=== PATIENT | female | born 1980 | race Asian ===

== ENCOUNTER → 2021-08-12 17:47 | Outpatient (CLI) | payer OTHER, SELFPAY ==
--- NOTE | 2021-08-12 18:15 | MRI_ITS ---
STUDY: MRI RIGHT ELBOW REASON FOR EXAM: Female, 41 years old. RIGHT elbow lateral epicondylitis TECHNIQUE: Standardized fat and water weighted pulse sequences were obtained in all 3 orthogonal planes. COMPARISON: None. FINDINGS: Normal radio-capitellum articulation. A high-grade partial tear/intrasubstance split tear is present in the central and posterior aspect of the common extensor tendon complex. The posterior aspect of the radial collateral ligament is also partially torn. The anterior aspect of the radial collateral ligament is intact but diffusely thinned. A small elbow joint effusion is present. No bone marrow edema or osteochondral defect or fracture is seen. Normal ulnotrochlear articulation. Normal ulnar collateral ligamentous complex. Normal common flexor tendon. The cubital tunnel is normal, with a normal ulnar nerve. Normal biceps tendon and distal insertion. Normal lacertus fibrosis. Normal brachialis musculotendinous insertion. Normal triceps tendon and teno-osseous insertion. Normal olecranon process. The visualized distal humerus, proximal radius, and ulna are normal. The visualized muscles of the distal arm and proximal forearm are normal. The soft tissue structures are unremarkable. MRI/Upper Ext Joint Only(Routine) IMPRESSION: 1. A high-grade partial tear/intrasubstance split tear is present in the central and posterior aspect of the common extensor tendon complex. 2. The posterior aspect of the radial collateral ligament is also partially torn. The anterior aspect of the radial collateral ligament is intact but diffusely thinned. 3. A small elbow joint effusion is present. No bone marrow edema or osteochondral defect or fracture is seen. Electronically Signed: Shaka Michelle MD at 23:17 EST , Service support ,
== END ==
PROVIDERS: Visit Provider Family Medicine
DX: M77.11 Lateral epicondylitis, right elbow (principal)
CPT/HCPCS: 73221

== ENCOUNTER → 2022-09-22 | Outpatient (CLI) | payer BC, SELFPAY ==
--- NOTE | 2022-09-22 07:56 | CT_ITS ---
STUDY: CT ABDOMEN AND PELVIS WITH CONTRAST REASON FOR EXAM: Female, 42 years old. Chronic right lower quadrant pain. Pelvic pressure. Dysuria. RADIATION DOSAGE (If Supplied By Facility): CTDIvol = ( 17.04 ) mGy, DLP = ( 351.65 ) mGycm TECHNIQUE: Transaxial images were obtained from the dome of the diaphragm to the symphysis pubis with oral contrast. Oral and amp;amp; IV Readi-CAT and amp;amp; 100mL Isovue-370 was administered. Sagittal and coronal images were reconstructed. Individualized dose optimization techniques were used for this CT. COMPARISON: None. FINDINGS: The visualized lung bases are unremarkable. The visualized portions of the heart are within normal limits. Normal liver. Normal gallbladder and extrahepatic biliary system. Normal spleen. Normal pancreas. Normal bilateral adrenal glands. Normal right kidney. Normal left kidney. Normal visualized stomach. Normal small intestine. Normal colon. The appendix is visualized and appears normal. Normal abdominal aorta. Normal inferior vena cava. Normal retroperitoneum. Normal urinary bladder. Heterogeneously enlarged uterus suggestive of a fibroid uterus. Normal abdominal wall. Normal osseous structures. CT/Abdomen/Pelvis WITH Contrast IMPRESSION: Enlarged fibroid uterus. Electronically Signed: Ariel Yee MD at 8:25 EST ,
== END | disposition home or self-care (01) ==
LOC: CT 07:55
PROVIDERS: Visit Provider Family Medicine
DX: R10.31 Right lower quadrant pain (principal)
CPT/HCPCS: 74177; Q9967

== ENCOUNTER 2023-06-16 13:26 | Emergency (ER) | payer BC, SELFPAY ==
[2023-06-16 13:27] VITALS: TEMP 36.1; BMI 21.7
[2023-06-16 13:31] VITALS: BP 115/84; PULSE 84; RESP 19; O2SAT 100
--- NOTE | 2023-06-16 13:53 | CT_ITS ---
HISTORY: headache, vertigo. TECHNIQUE: Multiple axial images were obtained of the head without intravenous contrast. A radiation dose optimization technique was used for this scan. 226 images. COMPARISON: None. FINDINGS: BRAIN PARENCHYMA: No significant attenuation abnormality. No acute intra-axial hemorrhage. CSF SPACES: Cerebral ventricles, cortical sulci, and other extra-axial CSF spaces within normal limits in size for age. No midline shift or other significant mass effect. No acute extra-axial hemorrhage. OTHER: Intact calvarium. No significant air fluid levels in the paranasal sinuses or mastoid air cells. Unremarkable orbits. CT/Brain/Head without Contrast IMPRESSION: No acute intracranial process identified. Electronically Signed: Sivan Abdalla MD at 14:40 EDT ,
[2023-06-16] MEDS: Ondansetron ODT 4 MG Tablet 8 MG PO (13:59)
[2023-06-16] MEDS: Meclizine HCl 25 MG Tablet PO (13:59)
--- NOTE | 2023-06-16 13:59 | EDS_ITS ---
HPI History of Present Illness Chief Complaint: Dizziness Informant: patient and spouse/S.O. Narrative Narrative: 43-year-old healthy female presents with intermittent severe dizziness that feels like spinning making her nausea with dry heaving, and when she was feeling awful she felt like she was a little short of breath although she does not feel like that now that her dizziness is better, she admits to having a mild headache with this off-and-on, no syncope, no injuries when she collapsed to her buttocks to the ground, this occurred today while she was at work but she had a worse episode today when she woke up this morning, it started upon getting out of bed. She confirms that moving her head makes everything worse and recur. She has had all of this before but symptoms were never as significant as they were today. The symptoms would go away when she rests. At home sometimes in the past she would get it with lying down in bed certain ways. She states she also felt some type of weird popping in her right ear today. She denies any recent URIs, injuries to her head or ears, earache, otorrhea, or peripheral neurologic symptoms. [facility] Medical History (Updated 06/16/23 @ 14:[address] Adrián Heck MD) History of right tennis elbow Medical History no medical history no medical history Home Medications aspirin 81 mg capsule 81 mg PO DAILY 06/16/23 [History Last Taken Unknown] meclizine 25 mg tablet 25 mg PO Q8H PRN PRN Dizziness #30 tabs 06/16/23 [Rx Last Taken Unknown] ondansetron 4 mg disintegrating tablet 8 mg (2 x 4 mg) PO Q8H PRN PRN Nausea #20 tabs 06/16/23 [Rx Last Taken Unknown] Allergy/AdvReac Type Severity Reaction Status Date / Time No Known Allergies Allergy Verified 06/16/23 13:29 Social History Smoking Status: Never smoker ROS ROS ED Constitutional Constitutional ED: Denies chills or fever(s) Eyes Eyes: Denies blurry vision, change in vision or diplopia ENT ENT ED: Reports as per HPI and vertigo; Denies ear pain, rhinorrhea or sore throat Cardiovascular Cardiovascular: Denies chest pain or palpitations Respiratory/Chest Respiratory/Chest: Reports as per HPI and dyspnea; Denies cough Gastrointestinal Gastrointestinal: Reports nausea and vomiting; Denies abdominal pain or diarrhea Genitourinary Genitourinary ED: Denies dysuria or hematuria Musculoskeletal Musculoskeletal: Denies back pain or neck pain Integumentary Denies abscess or rash Neurologic Neurologic: Reports headache(s); Denies paresthesias or weakness Psychiatric Psychiatric: Denies suicidal ideation or suicidal thoughts EXAM Physical Exam Const Vital Signs: 06/16/23 13:27 06/16/23 13:30 06/16/23 13:31 Temperature 96.9 F L Temperature Source Temporal Pulse Rate 84 Respiratory Rate 19 H Respiratory Effort Normal Blood Pressure 115/84 H Blood Pressure Mean 94 Pulse Ox 100 Oxygen Delivery Method Room Air Positive well nourished and well developed General Appearance ED: well developed and NAD HEENT Reports TM's clear and moist mucous membranes normocephalic and atraumatic Tympanic Membrane ED: Yes TM's clear Eyes PERRL and EOMs intact bilaterally Neck full ROM, no lymphadenopathy and supple Chest Wall inspection of chest normal and palpation of chest normal Resp normal respiratory effort and clear to auscultation bilaterally Cardio regular rate, regular rhythm and no murmurs Rate: Negative for tachycardic GI non-tender and non-distended Auscultation: normoactive bowel sounds Palpation: soft Back/Spine no CVA tenderness General Back: other FROM Extremity normal to inspection General Extremety ED: Negative for edema, pulses abnormal or tenderness General Extremity: Negative for edema or pulses abnormal Neuro oriented x3, CN's II-XII intact bilaterally and no sensory deficits noted Neuro Narrative: Normal [id number] and [id number] bilaterally. Abnormal jolt test while mildly vertiginous. Sensorium / Orientation: awake and alert Motor Exam: strength 5/5 throughout Psych Mood & Affect: anxious Skin no rashes or lesions noted and no wounds MDM MDM MDM Narrative Medical decision making narrative: History and exam including the abnormal jolt test all consistent with peripheral vertigo. Given that she has been having headaches with it, I obtained a CT of the head. I reviewed the images and the report from the radiologist which I agree with, negative for anything acute. In the meantime she was given meclizine and Zofran and reevaluated. She is feeling much better, ambulatory to and from the bathroom without any difficulty. Reassured, will refer to ENT since has been having symptoms for some time, and prescribe her meclizine and Zofran to use as needed in the meantime. She given a work note. Radiography Diagnostic Testing: Clinical Impression(s) from Imaging Studies Brain CT 06/16/23 13:53 IMPRESSION: No acute intracranial process identified. Electronically Signed: Sivan Abdalla MD at 14:40 EDT , Discharge Plan Triage Chief Complaint: Dizziness ED Provider: Adrián Heck Dx/Rx/DC Orders Clinical Impression: Peripheral vertigo Instructions: ED Vertigo, Unspecified Prescriptions: New meclizine [meclizine] 25 mg tablet 25 mg PO Q8H PRN PRN (Reason: Dizziness) Qty: 30 0RF ondansetron [ondansetron] 4 mg tablet,disintegrating 8 mg PO Q8H PRN PRN (Reason: Nausea) Qty: 20 0RF No Action aspirin 81 mg capsule 81 mg PO DAILY Primary Care Provider: Care Physician,No Primary Referrals: Sal Anderson MD [Med Staff - Active Staff] - (Call for appointment to be seen by first available ENT provider) Disposition Disposition: Home, Self Care
[2023-06-16 15:02] VITALS: BP 105/78; PULSE 82; RESP 18; O2SAT 100
== END 2023-06-16 15:19 | disposition home or self-care (01) ==
PROVIDERS: Emergency Provider Emergency Medicine; Visit Provider Emergency Medicine
DX: H81.399 Other peripheral vertigo, unspecified ear (principal); Z79.82 Long term (current) use of aspirin; R06.00 Dyspnea, unspecified
CPT/HCPCS: 70450; 99285

== ENCOUNTER 2025-06-19 16:29 | Emergency (ER) | payer BC, SELFPAY ==
[2025-06-19 16:30] VITALS: BP 108/84; PULSE 68; RESP 14; TEMP 36.2; O2SAT 100
[2025-06-19 17:29] VITALS: BP 109/74; PULSE 63; RESP 18; O2SAT 100
--- OUTSIDE RECORDS SUMMARY | 2025-06-19 17:35 | XMS RPT_ITS | CCD ---
Author Organization [facility] Partnership [facility] Care Team Providers Care Acetylene Torch Solderer Name Role Phone Unavailable Primary Care Provider ZEFERINO Corrales Attending Unavail BAILEY Cavazos Attending Unavailable Adrián Heck Attending Unavailable Care Physician, No Primary Primary Care Unava ilable Medications Current Medications Medication Drug Class(es) Dates Sig (Normalized) Sig (Original) aspirin 81 mg oral tablet (1 source) Platelet Aggregation Inhibitor, Nonsteroidal Anti-inflammatory Drug Start: 06-16-2023 take 81 mg by mouth once daily Aspirin Active 81 MG PO DAILY June 16, 2023 12:00am meclizine hydrochloride 25 mg oral tablet (1 source) Antiemetic Start: 06-16-2023 take 25 mg by mouth every eight hours as needed Meclizine Active 25 MG PO EVERY 8 HOURS NEEDED June 16, 2023 2:59pm ondansetron 4 mg disintegrating oral tablet (1 source) Serotonin-3 Receptor Antagonist Start: 06-16-2023 take 8 mg by mouth every eight hours as needed Ondansetron Active 8 MG PO EVERY 8 HOURS NEEDED June 16, 2023 12:00am Problems Active Problems Problem Classification Problem Date Documented Date Episodic/Chronic Abdominal pain (3 sources) Pain in female pelvis; Translations: [Pelvic and perineal pain] Onset: 10-16-2022 Episodic Benign neoplasm of uterus (3 sources) Uterine leiomyoma; Translations: [Leiomyoma of uterus, unspecified] Onset: 10-16-2022 Episodic Immunizations and screening for infectious disease (1 source) Patient encounter status; Translations: [Encounter for screening for human papillomavirus (HPV)] Episodic Other female genital disorders (2 sources) Abnormal uterine bleeding; Translations: [Abnormal uterine and vaginal bleeding, unspecified] Chronic Other female genital disorders (1 source) Abnormal uterine and vaginal bleeding, unspecified; Translations: [Abnormal uterine bleeding (AUB)] Onset: 10-16-2022 Chronic Other screening for suspected conditions (not mental disorders or infectious disease) (1 source) Cancer cervix screening status; Translations: [Encounter for screening for malignant neoplasm of cervix] Episodic Past or Other Problems Problem Classification Problem Date Documented Da te Episodic/Chronic Conditions associated with dizziness or vertigo (2 sources) Peripheral vertigo; Translations: [Other peripheral vertigo, unspecified ear] Onset: 06-22-2023 06-16-2023 Episodic Results Test Name Value Interpretation Reference Range Facility [facility] 10-17-2022 CNPN Telephone (OBGYWM) ERNESTO FUENTES ([id number]) 1980 F Date Time Provider Department 10/17/22 ZEFERINO MCCORMACK During your visit today, we recorded the following information about you: Staci Kong RN 10/17/2022 11:36 AM Signed ----- Message from Zeferino Johnson MD sent at 10/17/2022 11:05 AM EST ----- Notify the patient that her uterus shows very small fibroids largest measures 3.8 cm which is slightly smaller than a golf ball. Her uterus is just slightly enlarged. The myometrium is suspicious for adenomyosis which can cause pelvic pain and heavy menses. First-line therapy for this would be hormonal therapy either pills, Mirena IUD, patch, ring etc. If she would like to discuss options in detail please arrange virutal or in office visit. Staci Kong RN 10/17/2022 11:41 AM Signed Called patient and reviewed results and recommendations below. Patient asked that RN speak with her and well and go over results as there are some words that she doesn't fully understand. Spoke with as he also reviewed with patient. Offered in office appointment multiple times to go over treatment options in detail. declines states they will think about it and let us know. Staci Garcia MD 10/17/2022 12:23 PM Signed noted Allergies As of Date: 10/17/2022 (No Known Allergies) Date Reviewed: 10/09/2022 Reviewed by: Dora Urbano Ma - Fully Assessed Reason for Visit: Results [95] Problem List As Of Date: 10/17/2022 (None) Encounter Status:Closed by STACI KONG RN on 10/17/22 [facility] CNOVon 10-16-2022 CNOV Office Visit (OBGYWM ) ERNESTO FUENTES ([id number]) 1980 F Date Time Provider Department 10/16/22 4:45 PM BAILEY ALICIA During your visit today, we recorded the following information about you: Referring Provider: SELF [200] Allergies As of Date: 10/16/2022 (No Known Allergies) Date Reviewed: 10/09/2022 Reviewed by: Dora Urbano Ma - Fully Assessed Reason for Visit: Pelvic Pain [282] Primary Visit Diagnosis:Pelvic pain in female [R10.2] Problem List As Of Date: 10/16/2022 (None) Encounter Status:Closed by BAILEY ALICIA on 10/16/22 [facility] PELVIC US WHIon 10-16-2022 [facility] CNOVon 10-09-2022 CNOV Office Visit (OBGYWM ) ERNESTO FUENTES ([id number]) 1980 F Date Time Provider Department 10/09/22 10:20 AM ZEFERINO MCCORMACK During your visit today, we recorded the following information about you: Blood pressure Weight Height Last Period 110/60 48.1 kg 1.575 m 09/26/22 Zeferino Garcia MD 10/09/2022 11:35 AM Signed Curb Builder offered: Patient declines. Ernesto Fuentes is a 42 year old female who presents for problem visit of RLQ burning pain that radiates into the right buttock. It comes and goes randomly, and will persist until she takes medication. Aspirin normally provides relief. Pain is worse with periods. No aggravating factors. Went to see her PCP and they ordered CT. patient reports she currently uses vasectomy for control. States that previously she took control pills and she never had pain periods were light discomfort with them. She denies any changes with her bowel habits. She denies any nausea or vomiting associated pain. Rates it currently a 2 -5 out of 10 but can get a 10 out of 10. Patient offers no other concerns at this time. 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 No pertinent past medical history. PAST SURGICAL HISTORY Procedure Laterality Date ELBOW RIGHT 05/01/2022 No family history on file. Social History Tobacco Use Smoking status: Never Smokeless tobacco: Never Vaping Use Vaping Use: Never used Substance Use Topics Alcohol use: Never Drug use: Never No current outpatient medications on file. No current facility-administered medications for this visit. Allergies As of Date: 10/09/2022 (No Known Allergies) Fully Assessed 10/09/2022 REVIEW OF SYSTEMS Abdomen: +RLQ abdominal pain., nausea, vomiting, diarrhea, or constipation. No bloating, early satiety, indigestion, or increased flatulence. No abdominal pain, nausea, vomiting, diarrhea, or constipation. Bladder: No dysuria, gross hematuria, urinary frequency, urinary urgency, or incontinence. Breast: No breast lumps, nipple d/c, overlying skin changes, redness or skin retraction. Expanded ROS: REFRIGERATING ENGINEER: Negative for abnormal vaginal bleeding, abnormal vaginal discharge Allergies and current medication updated:Yes EXAM: BP 110/60 Ht 5' 2 (1.58m) Wt 106 lb (48.1kg) LMP 09/26/2022 BMI 19.38 kg/(m2). GENERAL: pleasant, female in no apparent distress HEENT: Normocephalic, atraumatic, mucus membranes moist, and no lesions NECK: full range of motion DERMATOLOGY: without lesions ABDOMEN: soft, non-tender, and no masses PELVIC: external genitalia normal, normal Bartholin's glands, urethra, [place]'s glands, no vulvar lesions, no cervical lesions, good vaginal support, physiologic discharge present, normal appearing perineal body and perianal region BIMANUAL: uterus top normal size, no adnexal masses, Mild tenderness, and ?? Fullness posterior to uterus NEURO: alert and oriented x3,exam grossly non-focal EXTREMITIES: normal ASSESSMENT AND PLAN: Encounter Diagnosis ICD-10-CM 1. Pelvic pain in female R10.2 PELVIC US WHI 2. Abnormal uterine bleeding (AUB) N93.9 PELVIC US WHI 3. Uterine leiomyoma, unspecified location D25.9 PELVIC US WHI 4. Screening for cervical cancer Z12.4 PAP FLUID CERVICAL SCREENING 5. Special screening examination for human papillomavirus (HPV) Z11.51 PAP FLUID CERVICAL SCREENING 6 CT results from [facility] reviewed that was done 09/22/2022 shows a heterogeneously enlarged uterus suggestive of a fibroid uterus no other suspicious findings noted. 7. Pelvic ultrasound reviewed with the patient. Discussed hormonal options and pamphlets were given. Once the results are back I will call the patient and discuss further. NSAIDs were reviewed with the patient. We discussed typical benign nature of fibroids. Medical Decision Making: Problems: Moderate: New problem with uncertain prognosis Data: Unique test result(s) reviewed: 1 Unique test(s) ordered: 3+ Medical Decision Making Level: 4 - Moderate Zeferino Garcia MD Allergies As of Date: 10/09/2022 (No Known Allergies) Date Reviewed: 10/09/2022 Reviewed by: Dora Urbano Ma - Fully Assessed Reason for Visit: Vaginal Problem [117] Primary Visit Diagnosis:Pelvic pain in female [R10.2] Other Visit Diagnoses:Abnormal uterine bleeding (AUB) [N93.9] Uterine leiomyoma, unspecified location [D25.9] Screening for cervical cancer [Z12.4] Special screening examination for human papillomavirus (HPV) [Z11.51] Order(s):PELVIC US WHI [[id number]] Order #: [id number]: 1 FUTURE PAP FLUID CERVICAL SCREENING (more content not included)... Normal [facility] HPV W/GENOTYPE THIN PREPon 0 10-09-2022 HPV 16 Ag Ql (Unsp spec) Negative Normal Negative for HPV DNA high risk type 16 by PCR [facility] Comment on above: Order Comment: Speci men Type: FLUID SPECIMEN Ordering Facility: [facility] Address: [address] [place] [address] Performed By: #### H PVHRT #### [facility] CLIA [id number] [address] [place] [address] [place] HPV 18 Ag Ql (Unsp spec) Negative Normal Negative for HPV DNA high risk type 18 by PCR [facility] Comment on above: Order Comment: Speci men Type: FLUID SPECIMEN Ordering Facility: [facility] Address: [address] [place] [address] Performed By: #### H PVHRT #### [facility] CLIA [id number] [address] [place] [address] [place] HPV 31+33+35+39+45+51+52 +56+58+59+66+68 DNA FACUNDO+probe Ql (Cvx) Negative for HPV DNA high risk types: 31,33,35,39,45,51,52,5 6,58,59,66,68 by PCR. Normal Negative for HPV DNA high risk types: 31,33,35,39,45 ,51,52,56,58,5 9,66,68 by PCR. [facility] Comment on above: Order Comment: Speci men Type: FLUID SPECIMEN Ordering Facility: [facility] Address: [address] [place] [address] Performed By: #### H PVHRT #### [facility] CLIA [id number] [address] [place] [address] [place] PAP FLUID CERVICAL SCREENING on 10-09-2022 CASE REPORT Normal [facility] Comment on above: Order Comment: Speci men Type: FLUID SPECIMEN Ordering Facility: [facility] Address: [address] [place], [place] [id number] Result Comment: Gyne cologic Cytology Report Case: [id number] Authorizing Provider: Zeferino Johnson, Collected: 10/09/2022 11:22 AM Ordering Location: OB/Gynecology Received: 10/09/2022 01:29 PM First Screen: Grace De La Paz, CT, ASCP Specimen: Pap, Sales Marketing, Screening, CERVICAL SCREENING FLUID Performed By: #### L [id number] #### [facility] CLIA [id number] [address] [place] [address] [place] CLINICAL HISTORY ROUTINE EXAM Normal [facility] Comment on above: Order Comment: Speci men Type: FLUID SPECIMEN Ordering Facility: [facility] Address: [address] [place] [address] Performed By: #### L [id number] #### [facility] CLIA [id number] [address] [place] [address] [place] CYTOLOGY INTERPRETATION PAP Normal [facility] Comment on above: Order Comment: Speci men Type: FLUID SPECIMEN Ordering Facility: [facility] Address: [address] [id number] Result Comment: Nega tive for Intraepithelial lesion or malignancy. Performed By: #### L [id number] #### [facility] CLIA [id number] [address] [place] [address] [place] FINAL DIAGNOSIS Normal [facility] Comment on above: Order Comment: Speci men Type: FLUID SPECIMEN Ordering Facility: [facility] Address: [address] Result Comment: A - CERVICAL SCREENING FLUID Satisfactory for interpretation Negative for Intraepithelial lesion or malignancy. Performed By: #### L [id number] #### [facility] CLIA [id number] [address] [place] FINAL PERFORMING LAB Normal [facility] Comment on above: Order Comment: Speci men Type: FLUID SPECIMEN Ordering Facility: [facility] Address: [address] Result Comment: Tech nical component, audit clerk screening performed at [facility], [address] [facility] [address] CLIA# [id number] Diagnostic interpretation performed at [facility], [address] [facility] [address] CLIA# [id number] Locksmith: Sher Gunn M.D. Performed By: #### L [id number] #### [facility] CLIA [id number] [address] [place] HPV REQUESTED? Yes, automatic HPV patients over 30 Normal [facility] Comment on above: Order Comment: Speci men Type: FLUID SPECIMEN Ordering Facility: [facility] Address: [address] [place] [place] [address] Performed By: #### L [id number] #### [facility] CLIA [id number] [address] [place] [id number] [place] LMP 09/26/2022 Normal [facility] Comment on above: Order Comment: Speci men Type: FLUID SPECIMEN Ordering Facility: [facility] Address: [address] Performed By: #### L [id number] #### [facility] CLIA [id number] [address] [place] [address] [place] PAP DISCLAIMER COMMENT The Pap Smear is a screening test for cervical cancer. False negative results occur with all screening tests, emphasizing the need for rescreening at recommended intervals, and clinical correlation. Normal [facility] Comment on above: Order Comment: Speci men Type: FLUID SPECIMEN Ordering Facility: [facility] Address: [address] [place] [address] Performed By: #### L [id number] #### [facility] CLIA [id number] [address] [place] [address] [place] PAP METEOROLOGICAL EQUIPMENT REPAIRER COMMENT This specimen has be en analyzed by the ThinPrep Imaging System, an automated imaging and review system, which assists the laboratory in evaluating cells on ThinPrep Pap tests. Following automated imaging, selected headley from every slide are reviewed by a audit clerk. Normal [facility] Comment on above: Order Comment: Speci men Type: FLUID SPECIMEN Ordering Facility: [facility] Address: [address] [place] [address] Performed By: #### L [id number] #### [facility] CLIA [id number] [address] [place] [address] Vital Signs Date Time Vital Sign Value Performing Clinician Dar baig 06-16-2023 15:02-0400 Diastolic blood pressure 78 mm[Hg] [facility] 06-16-2023 15:02-0400 Heart rate 82 /min [facility] 06-16-2023 15:02-0400 Respiratory rate 18 /min [facility] 06-16-2023 15:02-0400 SaO2% (BldA) [Mass fraction] 100 % [facility] 06-16-2023 15:02-0400 Systolic blood pressure 105 mm[Hg] [facility] 06-16-2023 13:27-0400 Body height 152.4 cm [facility] 06-16-2023 13:27-0400 Body mass index (BMI) [Ratio] 21.7 kg/m2 [facility] 06-16-2023 13:27-0400 Body temperature 96.9 [degF] [facility] 06-16-2023 13:270400 Body weight 50.6 kg [facility] 10-09-2022 10:230500 Body height 157.5 cm Zeferino Johnson MD Work Phone: [facility] 10-09-2022 10:230500 Body weight 48.08 kg Zeferino Johnson MD Work Phone: [facility] 10-09-2022 10:23-0500 Diastolic blood pressure 60 mm[Hg] Zeferino Johnson MD Work Phone: [facility] 10-09-2022 10:23-0500 Systolic blood pressure 110 mm[Hg] Zefreino Johnson MD Work Phone: [facility] Encounters Encounter Date Encounter Type Care Provider Facility Start: 06-16-2023 End: 06-16-2023 Emergency department patient visit [facility] Work Phone: Start: 10-17-2022 Telephone encounter Zeferino Johnson MD Work Phone: OB/Gynecology Comment on above: Results Start: 10-16-2022 End: 10-16-2022 ambulatory BAILEY ALICIA Facility:[facility] Start: 10-16-2022 End: 10-16-2022 Patient encounter procedure Client Support Professional [facility] Work Phone: OB/Gynecology Comment on above: Pelvic pain in femal e; Abnormal uterine bleeding (AUB); Uterine leiomyoma, unspecified location Start: 10-09-2022 End: 10-09-2022 ambulatory ZEFERINO JOHNSON Facility:[facility] Start: 10-09-2022 End: 10-09-2022 Patient encounter procedure Zeferino Johnson MD Work Phone: OB/Gynecology Comment on above: Pelvic pain in femal e (Primary Dx); Abnormal uterine bleeding (AUB); Uterine leiomyoma, unspecified location; Screening for cervical cancer; Special screening examination for human papillomavirus (HPV) Start: 09-22-2022 End: 09-22-2022 ambulatory [facility] Work Phone: Start: 09-22-2022 End: 09-22-2022 Patient encounter procedure [facility]-Cat Scan, [facility] Procedures Date Procedure Procedure Detail Performing Clinician Start: 06-16-2023 CT of head without contrast Start: 10-16-2022 Us pelvic nonobstetr ic real-time image complete Zeferino Johnson MD Work Phone: Start: 09-22-2022 Computed tomography of abdomen and pelvis with contrast Plan of Treatment Date Care Activity Detail Author Start: 10-09-2027 HPV TESTING HPV TESTING [facility] Start: 10-09-2027 PAP TESTING PAP TESTING [facility] Start: 10-09-2022 End: 10-09-2023 PELVIC US WHI PELVIC US WHI Anc Imaging Routine Pelvic pain in female Abnormal uterine bleeding (AUB) Uterine leiomyoma, unspecified location Expected: 10/09/2022, Expires: 10/09/2023 [facility] Work Phone: Comment on above: Expected: 10/09/2022 , Expires: 10/09/2023 Start: 09-17-2022 DEPRESSION ASSESSMENT DEPRESSION ASS ESSMENT [facility] Start: 05-18-2022 Influenza vaccination INFLUENZA (#1) [facility] Start: 2018 Mammography MAMMOGRAM [facility] Start: 01-29-2008 HPV TESTING HPV TESTING [facility] Start: 1999 PAP TESTING PAP TESTING [facility] Start: 1997 Urine microalbumin profile DTAP,TDAP,TD (1 - Tdap) [facility] Start: 01-29-1996 HEPATITIS C SCREENING HEPATITIS C SC REENING [facility] Start: 01-29-1996 HIV SCREENING HIV SCREENING [facility] Start: 1978 COVID-19 VACCINE (#1) COVID-19 VACCI NE (#1) [facility] Start: 1978 HEPATITIS B (1 of 3 - 3-dose series) HEPATITIS B (1 of 3 - 3-dose series) [facility] PAP FLUID CERVICAL SCREENING PAP FLUID CERVICAL SCREENING Lab Routine Screening for cervical cancer Special screening examination for human papillomavirus (HPV) 10/09/2022 11:22 AM EST [facility] Work Phone: Patient Education ED Vertigo, Unspecified [facility] Work Phone: Patient referral [facility] Work Phone: [facility] c Payers Date Payer Category Payer Self-pay [id number] 2021 Unknown [id number] 2021 Unknown [employer] PPO [id number] 2021-Present [phone] [address] [place] [address] PPO [id number] Unknown [facility] 123 [id number] Unknown [id number] Social History Date Type Detail Facility [facility] Work Phone: Start: 1980 Sex Assigned At Female [facility] Start: 10-09-2022 [facility] Never [facility] tobacco [facility] Start: 10-09-2022 Tobacco use and exposure Smokeless tobacco non-user [facility] Start: 10-09-2022 Alcohol intake Lifetime non-d viet (finding) [facility] Start: 06-16-2023 [facility] ever smoked [facility] Discharge summary 06-16-2023 Note Date & Type Note Facility 06-16-2023 Discharge summary Note Date/Time June 16, 2023 2:02pm [facility] Medical Records Department [address] [place] [address] Emergency Department Summary 06/16/23 MR#: [id number] Acct: [id number] Name: JUMANA FUENTES Rep #:[id number] : 1980 43 From: Adrián Heck MD PCP: Care Physician,No Primary Status :REG ER Location: ED HPI History of Present Illness Chief Complaint: Dizziness Informant: patient and spouse/S.O. Narrative Narrative: 43-year-old healthy female presents with intermittent severe dizziness that feels like spinning making her nausea with dry heaving, and when she was feelingawful she felt like she was a little short of breath although she does not feel like that now that her dizziness is better, she admits to having a mild headachewith this off-and-on, no syncope, no injuries when she collapsed to her buttocksto the ground, this occurred today while she was at work but she had a worse episode today when she woke up this morning, it started upon getting out of bed. She confirms that moving her head makes everything worse and recur. She has had all of this before but symptoms were never as significant as they were today. The symptoms would go away when she rests. At home sometimes in the past she would get it with lying down in bed certain ways. She states she also felt some type of weird popping in her right ear today. She denies any recent URIs, injuries to her head or ears, earache, otorrhea, or peripheral neurologic symptoms. [facility] Medical History (Updated 06/16/23 @ 14:[address] Adrián Heck MD) History of right tennis elbow Medical History no medical history no medical history Home Medications aspirin 81 mg capsule 81 mg PO DAILY 06/16/23 [History Last Taken Unknown] meclizine 25 mg tablet 25 mg PO Q8H PRN PRN Dizziness #30 tabs 06/16/23 [Rx Last Taken Unknown] ondansetron 4 mg disintegrating tablet 8 mg (2 x 4 mg) PO Q8H PRN PRN Nausea #20tabs 06/16/23 [Rx Last Taken Unknown] Allergy/AdvReac Type Severity Reaction Status Date / Time No Known Allergies Allergy Verified 06/16/23 13:29 Social History Smoking Status: Never smoker ROS ROS ED Constitutional Constitutional ED: Denies chills or fever(s) Eyes Eyes: Denies blurry vision, change in vision or diplopia ENT ENT ED: Reports as per HPI and vertigo; Denies ear pain, rhinorrhea or sore throat Cardiovascular Cardiovascular: Denies chest pain or palpitations Respiratory/Chest Respiratory/Chest: Reports as per HPI and dyspnea; Denies cough Gastrointestinal Gastrointestinal: Reports nausea and vomiting; Denies abdominal pain or diarrhea Genitourinary Genitourinary ED: Denies dysuria or hematuria Musculoskeletal Musculoskeletal: Denies back pain or neck pain Integumentary Denies abscess or rash Neurologic Neurologic: Reports headache(s); Denies paresthesias or weakness Psychiatric Psychiatric: Denies suicidal ideation or suicidal thoughts EXAM Physical Exam Const Vital Signs: 06/16/23 13:27 06/16/23 13:30 06/16/23 13:31 Temperature 96.9 F L Temperature Source Temporal Pulse Rate 84 Respiratory Rate 19 H Respiratory Effort Normal Blood Pressure 115/84 H Blood Pressure Mean 94 Pulse Ox 100 Oxygen Delivery Method Room Air Positive well nourished and well developed General Appearance ED: well developed and NAD HEENT Reports TM's clear and moist mucous membranes normocephalic and atraumatic Tympanic Membrane ED: Yes TM's clear Eyes PERRL and EOMs intact bilaterally Neck full ROM, no lymphadenopathy and supple Chest Wall inspection of chest normal and palpation of chest normal Resp normal respiratory effort and clear to auscultation bilaterally Cardio regular rate, regular rhythm and no murmurs Rate: Negative for tachycardic GI non-tender and non-distended Auscultation: normoactive bowel sounds Palpation: soft Back/Spine no CVA tenderness General Back: other FROM Extremity normal to inspection General Extremety ED: Negative for edema, pulses abnormal or tenderness General Extremity: Negative for edema or pulses abnormal Neuro oriented x3, CN's II-XII intact bilaterally and no sensory deficits noted Neuro Narrative: Normal [id number] and [id number] bilaterally. Abnormal jolt test while mildly vertiginous. Sensorium / Orientation: awake and alert Motor Exam: strength 5/5 throughout Psych Mood & Affect: anxious Skin no rashes or lesions noted and no wounds MDM MDM MDM Narrative Medical decision making narrative: History and exam including the abnormal jolt test all consistent with peripheralvertigo. Given that she has been having headaches with it, I obtained a CT of the head. I reviewed the images and the report from the radiologist which I agree with, negative for anything acute. In the meantime she was given meclizine and Zofran and reevaluated. She is feeling much better, ambulatory toand from the bathroom without any difficulty. Reassured, will refer to ENT since has been having symptoms for some time, and prescribe her meclizine and Zofran to use as needed in the meantime. She given a work note. Radiography Diagnostic Testing: Clinical Impression(s) from Imaging Studies Brain CT 06/16/23 13:53 IMPRESSION: No acute intracranial process identified. Electronically Signed: Sivan Abdalla MD at 14:40 EDT , Discharge Plan Triage Chief Complaint: Dizziness ED Provider: Adrián Heck Dx/Rx/DC Orders Clinical Impression: Peripheral vertigo Instructions: ED Vertigo, Unspecified Prescriptions: New meclizine [meclizine] 25 mg tablet 25 mg PO Q8H PRN PRN (Reason: Dizziness) Qty: 30 0RF ondansetron [ondansetron] 4 mg tablet,disintegrating 8 mg PO Q8H PRN PRN (Reason: Nausea) Qty: 20 0RF No Action aspirin 81 mg capsule 81 mg PO DAILY Primary Care Provider: Care Physician,No Primary Referrals: Sal Anderson MD [Med Staff - Active Staff] - (Call for appointment to be seen by first available ENT provider) Disposition Disposition: Home, Self Care What to do if you have Problems For any increased pain, shortness of breath, bleeding, nausea or vomiting, chestpain, or any unexpected problems, contact your Primary Care Provider. Call [facility] ([phone]) or report to the closest Emergency Room. Call 911 if necessary. 06/16/23 1455 <Electronically signed by Adrián Heck MD> Cosigner Signature (if applicable): CC: No Primary Care Physician ~ Signed [facility] Work Phone: Note 10-17-2022 Telephone Encounter - Zeferino Johnson MD - 10/17/2022 12:23 PM ESTTelephone Encounter - Staci Kong RN - 10/17/2022 11:39 AM EST Note Date & Type Note Facility 10-17-2022 Miscellaneous Notes Formattin g of this note might be different from the original. noted Called patient and reviewed results and recommendations below. Patient asked that RN speak with her and well and go over results as there are some words that she doesn't fully understand. Spoke with as he also reviewed with patient. Offered in office appointment multiple times to go over treatment options in detail. declines states they will think about it and let us know. Staci Kong RN ----- Message from Zeferino Johnson MD sent at 10/17/2022 11:05 AM EST ----- Notify the patient that her uterus shows very small fibroids largest measures 3.8 cm which is slightly smaller than a golf ball. Her uterus is just slightly enlarged. The myometrium is suspicious for adenomyosis which can cause pelvic pain and heavy menses. First-line therapy for this would be hormonal therapy either pills, Mirena IUD, patch, ring etc. If she would like to discuss options in detail please arrange virutal or in office visit. documented in this encounter [facility] Progress note 10-09-2022 Note Date & Type Note Facility 10-09-2022 Note HNO ID: [id number] Author: Zeferino Johnson MD Service: ? Author Type: Physician Type: Progress Notes Filed: 10/09/2022 11:35 AM Note Text: Curb Builder offered: Patient declines. Ernesto Fuentes is a 42 year old female who presents for problem visit of RLQ burning pain that radiates into the right buttock. It comes and goes randomly, and will persist until she takes medication. Aspirin normally provides relief. Pain is worse with periods. No aggravating factors. Went to see her PCP and they ordered CT. patient reports she currently uses vasectomy for control. States that previously she took control pills and she never had pain periods were light discomfort with them. She denies any changes with her bowel habits. She denies any nausea or vomiting associated pain. Rates it currently a 2 -5 out of 10 but can get a 10 out of 10. Patient offers no other concerns at this time. 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 No pertinent past medical history. PAST SURGICAL HISTORY Procedure Laterality Date ELBOW RIGHT 05/01/2022 No family history on file. Social History Tobacco Use Smoking status: Never Smokeless tobacco: Never Vaping Use Vaping Use: Never used Substance Use Topics Alcohol use: Never Drug use: Never No current outpatient medications on file. No current facility-administered medications for this visit. Allergies As of Date: 10/09/2022 (No Known Allergies) Fully Assessed 10/09/2022 REVIEW OF SYSTEMS Abdomen: +RLQ abdominal pain., nausea, vomiting, diarrhea, or constipation. No bloating, early satiety, indigestion, or increased flatulence. No abdominal pain, nausea, vomiting, diarrhea, or constipation. Bladder: No dysuria, gross hematuria, urinary frequency, urinary urgency, or incontinence. Breast: No breast lumps, nipple d/c, overlying skin changes, redness or skin retraction. Expanded ROS: REFRIGERATING ENGINEER: Negative for abnormal vaginal bleeding, abnormal vaginal discharge Allergies and current medication updated:Yes EXAM: BP 110/60 Ht 5' 2 (1.58m) Wt 106 lb (48.1kg) LMP 09/26/2022 BMI 19.38 kg/(m2). GENERAL: pleasant, female in no apparent distress HEENT: Normocephalic, atraumatic, mucus membranes moist, and no lesions NECK: full range of motion DERMATOLOGY: without lesions ABDOMEN: soft, non-tender, and no masses PELVIC: external genitalia normal, normal Bartholin's glands, urethra, [place]'s glands, no vulvar lesions, no cervical lesions, good vaginal support, physiologic discharge present, normal appearing perineal body and perianal region BIMANUAL: uterus top normal size, no adnexal masses, Mild tenderness, and ?? Fullness posterior to uterus NEURO: alert and oriented x3,exam grossly non-focal EXTREMITIES: normal ASSESSMENT AND PLAN: Encounter Diagnosis ICD-10-CM 1. Pelvic pain in female R10.2 PELVIC US WHI 2. Abnormal uterine bleeding (AUB) N93.9 PELVIC US WHI 3. Uterine leiomyoma, unspecified location D25.9 PELVIC US WHI 4. Screening for cervical cancer Z12.4 PAP FLUID CERVICAL SCREENING 5. Special screening examination for human papillomavirus (HPV) Z11.51 PAP FLUID CERVICAL SCREENING 6 CT results from [facility] reviewed that was done 09/22/2022 shows a heterogeneously enlarged uterus suggestive of a fibroid uterus no other suspicious findings noted. 7. Pelvic ultrasound reviewed with the patient. Discussed hormonal options and pamphlets were given. Once the results are back I will call the patient and discuss further. NSAIDs were reviewed with the patient. We discussed typical benign nature of fibroids. Medical Decision Making: Problems: Moderate: New problem with uncertain prognosis Data: Unique test result(s) reviewed: 1 Unique test(s) ordered: 3+ Medical Decision Making Level: 4 - Moderate Zeferino Garcia MD [facility] History of Present illness Narrative 10-09-2022 Zeferino Johnson MD - 10/09/2022 10:20 AM EST Note Date & Type Note Facility 10-09-2022 History of Presen t illness Narrative Curb Builder offered: Patient declines. Ernesto Fuentes is a 42 year old female who presents for problem visit of RLQ burning pain that radiates into the right buttock. It comes and goes randomly, and will persist until she takes medication. Aspirin normally provides relief. Pain is worse with periods. No aggravating factors. Went to see her PCP and they ordered CT. patient reports she currently uses vasectomy for control. States that previously she took control pills and she never had pain periods were light discomfort with them. She denies any changes with her bowel habits. She denies any nausea or vomiting associated pain. Rates it currently a 2 -5 out of 10 but can get a 10 out of 10. Patient offers no other concerns at this time. 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 No pertinent past medical history. PAST SURGICAL HISTORY Procedure Laterality Date ELBOW RIGHT 05/01/2022 No family history on file. Social History Tobacco Use Smoking status: Never Smokeless tobacco: Never Vaping Use Vaping Use: Never used Substance Use Topics Alcohol use: Never Drug use: Never No current outpatient medications on file. No current facility-administered medications for this visit. Allergies As of Date: 10/09/2022 (No Known Allergies) Fully Assessed 10/09/2022 REVIEW OF SYSTEMS Abdomen: +RLQ abdominal pain., nausea, vomiting, diarrhea, or constipation. No bloating, early satiety, indigestion, or increased flatulence. No abdominal pain, nausea, vomiting, diarrhea, or constipation. Bladder: No dysuria, gross hematuria, urinary frequency, urinary urgency, or incontinence. Breast: No breast lumps, nipple d/c, overlying skin changes, redness or skin retraction. Expanded ROS: REFRIGERATING ENGINEER: Negative for abnormal vaginal bleeding, abnormal vaginal discharge Allergies and current medication updated:Yes EXAM: BP 110/60 Ht 5' 2 (1.58m) Wt 106 lb (48.1kg) LMP 09/26/2022 BMI 19.38 kg/(m^2). GENERAL: pleasant, female in no apparent distress HEENT: Normocephalic, atraumatic, mucus membranes moist, and no lesions NECK: full range of motion DERMATOLOGY: without lesions ABDOMEN: soft, non-tender, and no masses PELVIC: external genitalia normal, normal Bartholin's glands, urethra, [place]'s glands, no vulvar lesions, no cervical lesions, good vaginal support, physiologic discharge present, normal appearing perineal body and perianal region BIMANUAL: uterus top normal size, no adnexal masses, Mild tenderness, and ?? Fullness posterior to uterus NEURO: alert and oriented x3,exam grossly non-focal EXTREMITIES: normal ASSESSMENT AND PLAN: Encounter Diagnosis ICD-10-CM 1. Pelvic pain in female R10.2 PELVIC US WHI 2. Abnormal uterine bleeding (AUB) N93.9 PELVIC US WHI 3. Uterine leiomyoma, unspecified location D25.9 PELVIC US WHI 4. Screening for cervical cancer Z12.4 PAP FLUID CERVICAL SCREENING 5. Special screening examination for human papillomavirus (HPV) Z11.51 PAP FLUID CERVICAL SCREENING 6 CT results from [facility] reviewed that was done 09/22/2022 shows a heterogeneously enlarged uterus suggestive of a fibroid uterus no other suspicious findings noted. 7. Pelvic ultrasound reviewed with the patient. Discussed hormonal options and pamphlets were given. Once the results are back I will call the patient and discuss further. NSAIDs were reviewed with the patient. We discussed typical benign nature of fibroids. Medical Decision Making: Problems: Moderate: New problem with uncertain prognosis Data: Unique test result(s) reviewed: 1 Unique test(s) ordered: 3+ Medical Decision Making Level: 4 - Moderate Zeferino Garcia MD documented in this encounter [facility] Evaluation note Note Date & Type Note Facility Evaluation note No assessment information availa ble [facility] Work Phone: Evaluation note Note Date & Type Note Facility Evaluation note Diagnosis Pelvic pain in female- Primary Unspecified symptom associated with female genital organs Abnormal uterine bleeding (AUB) Uterine leiomyoma, unspecified location Screening for cervical cancer Screening for malignant neoplasm of the cervix Special screening examination for human papillomavirus (HPV) documented in this encounter [facility] Evaluation note Note Date & Type Note Facility Evaluation note Diagnosis Pelvic pain in female Unspecified symptom associated with female genital organs Abnormal uterine bleeding (AUB) Uterine leiomyoma, unspecified location documented in this encounter [facility] Reason for referral (narrative) Diagnostic Procedure Only (Routine) - Pending Review Note Date & Type Note Facility Reason for referral (narrati ve) Specialty Diagnoses / Procedures Referred By Amanda garcia Referred To Contact [facility] Diagnoses Pelvic pain in female Abnormal uterine bleeding (AUB) Uterine leiomyoma, unspecified location Procedures PELVIC US WHI US PELVIC NONOBSTETRIC REAL-TIME IMAGE COMPLETE Zeferino Mccormack MD [address] [place] [address] [facility] [address] [place] [address] Referral ID Status Reason Start Date Expiration Date Visits Requested Visits Authorized [id number] Pending Review Auto-Generat ed Referral 10/09/2022 10/09/2023 1 1 [facility] Reason for visit Narrative Diagnostic Procedure Only (Routine) - Closed Note Date & Type Note Facility Reason for visit Narrative Specialty Diagnoses / Procedures Referred By Amanda garcia Referred To Contact [facility] Diagnoses Pelvic pain in female Abnormal uterine bleeding (AUB) Uterine leiomyoma, unspecified location Procedures PELVIC US WHI US PELVIC NONOBSTETRIC REAL-TIME IMAGE COMPLETE Zeferino Mccormack MD [address] [place] [address] [facility] [address] [place] [address] Referral ID Status Reason Start Date Expiration Date V isits Requested Visits Authorized [id number] Closed Auto-Generate d Referral 10/16/2022 09/16/2023 1 1 [facility] Chief Complaint and Reason for Visit Chief Complaint ABD PAIN Chief Complaint DIZZINESS Summary Purpose Family History No Family History Records FoundNo Family History Records Found Advance Directives No Advanced Directives Records Found Advance Directive Response Recorded Date/ Time Living Will No June 16, 2023 1:30pm Power of Law Office Manager No May 1:30pm Additional Source Comments Care Teams (unrecognized sec tion and content) Team Status: Inactive Member Role Status Dates Dr. Fariha Tello MD Attending Provider Active Team Status: Active Member Role Status Dates No Primary Care Physician Primary Care Provider Active Team Status: Inactive Member Role Status Dates Dr. Adrián Heck MD Emergency Provider Active No Primary Care Physician Primary Care Provider Active Goals (unrecognized section and content) Goals may be documented in a n alternate sectionGoals may be documented in an alternate section Source Comments (unrecognize d section and content) In the event this informatio n is protected by the Federal Confidentiality of Alcohol and Drug Abuse Patient Records regulations: The Federal rules restrict any use of the information to criminally investigate or prosecute any alcohol or drug abuse patient.[facility] the event this information is protected by the Federal Confidentiality of Alcohol and Drug Abuse Patient Records regulations: The Federal rules restrict any use of the information to criminally investigate or prosecute any alcohol or drug abuse patient.[facility] the event this information is protected by the Federal Confidentiality of Alcohol and Drug Abuse Patient Records regulations: The Federal rules restrict any use of the information to criminally investigate or prosecute any alcohol or drug abuse patient.[facility] Reason for Visit (unrecogniz ed section and content) Reason Comments Vaginal Problem Reason Comments Results INFORMATION SOURCE (unrecogn ized section and content) DATE CREATED AUTHOR 10/18/2022 [facility] DATE CREATED AUTHOR AUTHOR'S NELSON ATPRETTY 07/16/2024 [facility] FOR RECORDS PERTAINING TO PATIENTS WHO ARE OR HAVE BEEN ENROLLED IN A CHEMICAL DEPENDENCY/SUBSTANCEABUSE PROGRAM, SOME INFORMATION MAY BE OMITTED. This clinical summary was aggregated from multiple sources. Caution should be exercised in using it in the provision of clinical care. This summary normalizes information from multiple sources, and as a consequence, information in this document may materially change the coding, format and clinical context of patient data. In addition, data may be omitted in some cases. CLINICAL DECISIONS SHOULD BE BASED ON THE PRIMARY CLINICAL RECORDS. [facility]. provides no warranty or guarantee of the accuracy or completeness of information in this document.
[2025-06-19 18:00] VITALS: PULSE 65; RESP 18; O2SAT 99
[2025-06-19 19:00] VITALS: BP 101/68; PULSE 64; RESP 16; O2SAT 100
--- NOTE | 2025-06-19 19:03 | EDS_ITS ---
HPI History of Present Illness Chief Complaint: Dizziness Informant: patient and spouse/S.O. Narrative Narrative: Patient is a 45-year-old female with history of peripheral vertigo but no other significant past medical history presenting with sudden onset of vertigo, room spinning sensation as well as nausea and vomiting. Patient states she woke up feeling okay today but then when she was feeding the dogs (bent down) she said feel like the room was spinning around her. She states she has pressure in her bilateral ears. Denies any hearing changes. Any associated numbness or headache. States her symptoms are worse when she opens her eyes or looks around . Did try taking an old meclizine with no relief. Came in for further evaluation. Denies any recent URI symptoms. Eyes any fever or chills. Has had a hard time walking because she cannot open her eyes. No other complaints or concerns reported at this time. [facility] Medical History Vertigo History of right tennis elbow Home Medications ?Medication ?Instructions ?Recorded ?Last Taken ?Type aspirin 81 mg capsule 81 mg PO DAILY 06/16/23 Unkn own History meclizine 25 mg tablet 25 mg PO Q8H PRN PRN Dizzine ss #30 06/16/23 Unknown Rx tabs ondansetron 4 mg disintegrating 8 mg (2 x 4 mg) PO Q8H PRN PRN 06/16/23 Unknown Rx tablet Nausea #20 tabs diazepam 2 mg tablet (Valium) 2 mg PO TID PRN severe v ertigo 06/19/25 Unknown Rx symptoms #6 tabs meclizine 25 mg tablet 25 mg PO 4X/DAY PRN PRN Dizz iness 06/19/25 Unknown Rx #20 tabs ondansetron 4 mg disintegrating 4 mg PO Q8H PRN PRN Na usea #10 tabs 06/19/25 Unknown Rx tablet Allergy/AdvReac Type Severity Reaction Status Date / Time No Known Allergies Allergy Verified 06/19/25 16:30 Social History Smoking Status: Never smoker ROS ROS ED Constitutional Constitutional ED: Denies chills or fever(s) Eyes Eyes: Denies blurry vision or change in vision Gastrointestinal Gastrointestinal: Reports nausea and vomiting Integumentary Denies rash Neurologic Neurologic: Reports other Details: Vertigo ; Denies headache(s), paresthesias or weakness Hematologic/Lymphatic Hematologic/Lymphatic: Denies easy bleeding or easy bruising EXAM Physical Exam Const Vital Signs: 06/19/25 16:30 06/19/25 17:29 06/19/25 18:00 Temperature 97.1 F L Temperature Source Temporal Pulse Rate 68 63 65 Respiratory Rate 14 18 18 Blood Pressure 108/84 H 109/74 Blood Pressure Mean 92 85 Pulse Ox 100 100 99 Oxygen Delivery Method Room Air Room Air 06/19/25 19:00 06/19/25 19:20 Temperature 97.1 F L Temperature Source Pulse Rate 64 64 Respiratory Rate 16 16 Blood Pressure 101/68 101/68 Blood Pressure Mean 79 79 Pulse Ox 100 100 Oxygen Delivery Method Room Air Positive well nourished and well developed General Appearance ED: well developed and NAD HEENT Reports TM's clear and moist mucous membranes HEENT Narrative: Slightly boggy nasal mucosa with some congestion present. Normal oropharynx Tympanic Membrane ED: Yes TM's clear Eyes PERRL and EOMs intact bilaterally Eyes Narrative: Bilateral horizontal nystagmus present that does fatigue. Positive Emmy-Hallpike maneuver on the right. Neck no lymphadenopathy, supple and no JVD Chest Wall inspection of chest normal Resp normal respiratory effort and clear to auscultation bilaterally Cardio regular rate and regular rhythm GI non-tender Extremity normal to inspection General Extremety ED: Negative for edema General Extremity: Negative for edema Neuro oriented x3, CN's II-XII intact bilaterally and no sensory deficits noted Neuro Narrative: No truncal ataxia. Normal [id number]. Normal speech. Sensorium / Orientation: alert Motor Exam: strength 5/5 throughout Skin no rashes or lesions noted and no wounds MDM MDM MDM Narrative Medical decision making narrative: Patient evaluated sudden onset of room span sensation. Peripheral vertigo as well as central vertigo is on the differential. Patient overall is normal neurologic exam and has a positive [place]-Hallpike maneuver on the right which is consistent with peripheral vertigo/BPPV. Erika maneuver for the right is performed and patient is given oral Valium as well as Zofran. On repeat evaluation she is feeling much better and her symptoms have improved. She is opening her eyes and moving around. We discharged home with a referral for ENT and a refill of Zofran, meclizine and then Valium for breakthrough/severe symptoms. Given return precautions. Discharged home in stable condition Discharge Plan Triage Chief Complaint: Dizziness ED Provider: Annie Murillo Dx/Rx/DC Orders Clinical Impression: Peripheral vertigo involving right ear Instructions: ED BPV Vertigo Prescriptions: New meclizine 25 mg tablet 25 mg PO 4X/DAY PRN PRN (Reason: Dizziness) Qty: 20 0RF diazepam [Valium] 2 mg tablet 2 mg PO TID PRN (Reason: severe vertigo symptoms ) Qty: 6 0RF ondansetron 4 mg tablet,disintegrating 4 mg PO Q8H PRN PRN (Reason: Nausea) Qty: 10 0RF No Action aspirin 81 mg capsule 81 mg PO DAILY meclizine [meclizine] 25 mg tablet 25 mg PO Q8H PRN PRN (Reason: Dizziness) Qty: 30 0RF ondansetron [ondansetron] 4 mg tablet,disintegrating 8 mg PO Q8H PRN PRN (Reason: Nausea) Qty: 20 0RF Primary Care Provider: Rudy Kim Referrals: Rudy Kim MD [Primary Care Provider, Family Practice] Sal Anderson MD [Med Staff - Active Staff, Ear Nose Throat (ENT)] Activity Restrictions/Additional Instructions: Patient drinking plenty of fluids. Given 2 medications to help with the vertigo will. The meclizine is first-line but it does not work and given diazepam for severe symptoms. Additionally given a prescription for nausea medicine. Please follow-up with ear nose and throat doctor for this. Print Language: Hebrew Disposition Disposition: Home, Self Care
[2025-06-19 19:20] VITALS: BP 101/68; PULSE 64; RESP 16; TEMP 36.2; O2SAT 100
== END 2025-06-19 19:33 | disposition home or self-care (01) ==
PROVIDERS: Emergency Provider Emergency Medicine; PCP Family Medicine; Visit Provider Emergency Medicine
DX: H81.391 Other peripheral vertigo, right ear (principal)
CPT/HCPCS: 99283